=== PATIENT | male | born 1990 | race Caucasian/White ===

== ENCOUNTER 2023-03-18 01:33 | Inpatient (IN) | payer MEDICAID ==
[~2023-03-18] VITALS: Ht 182.9 cm; Wt 108.9 kg
[2023-03-18] MEDS ORDERED: KETOROLAC 30MG/ML VIAL IV STA (01:40)
[2023-03-18] MEDS ORDERED: ONDANSETRON HCL 4MG/2ML INJ IV STA (01:40)
[2023-03-18] MEDS ORDERED: SODIUM CHLORIDE 0.9% 1,000 ML IV ONE (01:45)
[2023-03-18 01:55] LABS: BASOPHILS % 0.2 % (0.0-2.0); EOSINOPHILS % 0.6 % (0.0-5.0); HEMATOCRIT. 45.2 % (42.0-52.0); HEMOGLOBIN. 15.5 g/dL (14.0-18.0); LYMPHOCYTES % 20.4 % (20.0-50.0); MEAN CORPUSCULAR HEMOGLOBIN 29.3 pg (28.0-32.0); MEAN CORPUSCULAR HGB CONC 34.4 g/dL (31.0-37.0); MEAN CORPUSCULAR VOLUME 85.4 fL (80.0-94.0); MEAN PLATELET VOLUME 7.2 fl (7.4-10.4); MONOCYTES % 5.9 % (2.0-8.0); NEUTROPHILS % 72.9 % (40.0-76.0); PLATELET 395 x1000/uL (130-400); RED CELL DISTRIBUTION WIDTH 12.8 % (11.6-14.6); WHITE BLOOD COUNT 13.5 x1000/uL (4.5-11.0)
[2023-03-18 02:07] LABS: PROTHROMBIN TIME 10.5 sec (9.6-11.0)
[2023-03-18 02:10] LABS: ALANINE AMINOTRANSFERASE 40 IU/L (10-49); ALBUMIN 4.4 g/dL (3.2-4.8); ASPARTATE AMINOTRANSFERASE 19 IU/L (<34); BILIRUBIN TOTAL 0.8 mg/dL (0.1-1.0); CALCIUM 9.6 mg/dL (8.7-10.4); CARBON DIOXIDE 20 mEq/L (21-32); CHLORIDE 104 mEq/L (98-107); CREATININE 0.8 mg/dL (0.6-1.3); GLUCOSE 308 mg/dL (70-105); POTASSIUM 3.5 mEq/L (3.5-5.1); PROTEIN TOTAL 7.8 g/dL (6.0-8.3); SODIUM 136 mEq/L (136-145); UREA NITROGEN BLOOD 11 mg/dL (9-23)
[2023-03-18 02:17] LABS: ETHANOL BLOOD < 10 mg/dL (<10)
[2023-03-18] MEDS ORDERED: ONDANSETRON HCL 4MG/2ML INJ IV NR (04:45)
[2023-03-18] MEDS ORDERED: KETOROLAC 30MG/ML VIAL IV NR (04:45)
[2023-03-18] MEDS ORDERED: SODIUM CHLORIDE 0.9% 1,000 ML IV NR (05:00)
[2023-03-18] MEDS ORDERED: CEFTRIAXONE 1GM PREMIX 50 ML IV NR (05:00)
[2023-03-18] MEDS ORDERED: DEXTROSE 50% WATER 50ML SYRINGE IV PRN (10:30)
[2023-03-18] MEDS ORDERED: LORAZEPAM 0.5MG TABLET PO PRN (10:30)
[2023-03-18] MEDS ORDERED: CLONIDINE 0.1MG TABLET PO PRN (10:30)
[2023-03-18] MEDS ORDERED: ACETAMINOPHEN 325MG TABLET PO PRN ×2 (10:30)
[2023-03-18] MEDS ORDERED: ONDANSETRON HCL 4MG/2ML INJ IV PRN (10:30)
[2023-03-18 10:49] VITALS: PULSE 94; RESP 18
[2023-03-18] MEDS: IPRATROPIUM/ALBUTEROL 0.5-3(2.5)MG/3ML NEB HHN SCH ×3 (10:49→20:58)
[2023-03-18 11:17] LABS: CLARITY URINE CLEAR (CLEAR); COLOR URINE YELLOW (YELLOW); GLUCOSE URINE 3+ (NEGATIVE); KETONES URINE 3+ (NEGATIVE); LEUKOCYTE ESTERASE URINE NEGATIVE (NEGATIVE); NITRITE URINE NEGATIVE (NEGATIVE); OCCULT BLOOD URINE NEGATIVE (NEGATIVE); PROTEIN URINE NEGATIVE (NEGATIVE); SPECIFIC GRAVITY URINE 1.046 (1.005-1.030)
[2023-03-18] MEDS ORDERED: METOCLOPRAMIDE HCL 5MG TABLET PO PRN (11:45)
[2023-03-18 11:46] LABS: BACTERIA URINE NONE SEEN; RBC URINE 0-2 /hpf (0-2); SQUAMOUS EPITHELIAL CELL URINE RARE /lpf (RARE/1+); WBC URINE 0-2 /hpf (0-2); YEAST URINE NONE SEEN
[2023-03-18 13:44] LABS: *AMPHETAMINES SCREEN URINE NEGATIVE (NEGATIVE); *BARBITURATES SCREEN URINE NEGATIVE (NEGATIVE); *BENZODIAZEPINES SCREEN URINE NEGATIVE (NEGATIVE); *COCAINE SCREEN URINE NEGATIVE (NEGATIVE); CANNABINOID URINE SCREEN NEGATIVE (NEGATIVE); ECSTASY MDMA SCREEN URINE NEGATIVE (NEGATIVE); METHADONE URINE SCREEN Neg (NEGATIVE); OPIATES URINE SCREEN NEGATIVE (NEGATIVE); PHENCYCLIDINE URINE SCREEN NEGATIVE (NEGATIVE)
[2023-03-18 15:48] VITALS: PULSE 70; RESP 18
[2023-03-18 16:00] VITALS: BP 127/84; PULSE 87; RESP 20; TEMP 98.6
[2023-03-18] MEDS: INSULIN LISPRO 100 UNITS/ML SUBCUT SCH ×3 (16:53→21:24)
[2023-03-18] MEDS: BLOOD SUGAR DIAGNOSTIC STRIP TEST SCH ×2 (16:53→21:18)
[2023-03-18 20:00] VITALS: BP 130/78; PULSE 99; RESP 16; TEMP 98.5
[2023-03-18 20:55] VITALS: PULSE 64; RESP 18
[2023-03-18 21:18] LABS: GAMMA GLUTAMYL TRANSPEPTIDASE 127 IU/L (<73)
[2023-03-18 21:21] LABS: BETA HYDROXYBUTYRATE < 0.1 mMol/L (0.0-0.3)
[2023-03-18 21:32] VITALS: BP 130/78; PULSE 99; RESP 18; TEMP 98.5
[2023-03-19] VITALS (10 sets, daily range): BP systolic 116–141; BP diastolic 69–80; PULSE 83–115; RESP 16–20; TEMP 97.6–98.3; O2SAT 97–99
[2023-03-19] MEDS: IPRATROPIUM/ALBUTEROL 0.5-3(2.5)MG/3ML NEB HHN SCH ×7 (00:50→21:22)
[2023-03-19 06:34] LABS: BASOPHILS % 0.4 % (0.0-2.0); EOSINOPHILS % 0.7 % (0.0-5.0); HEMOGLOBIN. 15.1 g/dL (14.0-18.0); LYMPHOCYTES % 12.9 % (20.0-50.0); MEAN CORPUSCULAR HEMOGLOBIN 29.4 pg (28.0-32.0); MEAN CORPUSCULAR VOLUME 83.9 fL (80.0-94.0); MEAN PLATELET VOLUME 7.7 fl (7.4-10.4); PLATELET 347 x1000/uL (130-400); RED BLOOD CELL COUNT 5.12 mill/uL (4.7-6.1); RED CELL DISTRIBUTION WIDTH 12.8 % (11.6-14.6); WHITE BLOOD COUNT 16.7 x1000/uL (4.5-11.0)
[2023-03-19 07:15] LABS: ALANINE AMINOTRANSFERASE 34 IU/L (10-49); ALBUMIN 4.4 g/dL (3.2-4.8); ASPARTATE AMINOTRANSFERASE 25 IU/L (<34); BILIRUBIN DIRECT 0.6 mg/dL (<=3.0); BILIRUBIN TOTAL 1.5 mg/dL (0.1-1.0); CALCIUM 9.4 mg/dL (8.7-10.4); CARBON DIOXIDE 24 mEq/L (21-32); CHLORIDE 101 mEq/L (98-107); CREATININE 0.7 mg/dL (0.6-1.3); GLUCOSE 224 mg/dL (70-105); POTASSIUM 3.6 mEq/L (3.5-5.1); SODIUM 133 mEq/L (136-145); UREA NITROGEN BLOOD 8 mg/dL (9-23)
[2023-03-19] MEDS: INSULIN LISPRO 100 UNITS/ML SUBCUT SCH ×4 (07:50→22:34)
[2023-03-19] MEDS: BLOOD SUGAR DIAGNOSTIC STRIP TEST SCH ×4 (07:57→21:47)
[2023-03-19] MEDS: CEFTRIAXONE 1GM PREMIX 50 ML IV SCH ×2 (11:00→13:15)
[2023-03-19] MEDS: SODIUM CHL 0.45% + KCL 20MEQ/L 1,000 ML IV SCH (22:57)
[2023-03-20 04:00] VITALS: BP 123/83; PULSE 95; RESP 18; TEMP 98
[2023-03-20] MEDS: IPRATROPIUM/ALBUTEROL 0.5-3(2.5)MG/3ML NEB HHN SCH ×2 (04:00→20:00)
[2023-03-20 06:13] LABS: BASOPHILS % 0.3 % (0.0-2.0); EOSINOPHILS % 1.5 % (0.0-5.0); HEMATOCRIT. 43.1 % (42.0-52.0); HEMOGLOBIN. 14.8 g/dL (14.0-18.0); LYMPHOCYTES % 13.1 % (20.0-50.0); MEAN CORPUSCULAR HEMOGLOBIN 29.4 pg (28.0-32.0); MEAN CORPUSCULAR HGB CONC 34.4 g/dL (31.0-37.0); MEAN CORPUSCULAR VOLUME 85.5 fL (80.0-94.0); MEAN PLATELET VOLUME 7.4 fl (7.4-10.4); MONOCYTES % 8.9 % (2.0-8.0); NEUTROPHILS % 76.2 % (40.0-76.0); PLATELET 334 x1000/uL (130-400); RED BLOOD CELL COUNT 5.04 mill/uL (4.7-6.1); RED CELL DISTRIBUTION WIDTH 12.6 % (11.6-14.6)
[2023-03-20 06:17] LABS: CALCIUM 9.2 mg/dL (8.7-10.4); CARBON DIOXIDE 22 mEq/L (21-32); CHLORIDE 101 mEq/L (98-107); CREATININE 0.7 mg/dL (0.6-1.3); GLUCOSE 187 mg/dL (70-105); POTASSIUM 3.7 mEq/L (3.5-5.1); SODIUM 133 mEq/L (136-145); UREA NITROGEN BLOOD 9 mg/dL (9-23)
[2023-03-20] MEDS: BLOOD SUGAR DIAGNOSTIC STRIP TEST SCH ×2 (07:20→12:20)
[2023-03-20] MEDS: INSULIN LISPRO 100 UNITS/ML SUBCUT SCH ×2 (07:50→12:50)
[2023-03-20 08:00] VITALS: BP 125/81; PULSE 100; RESP 18; RESP 20; TEMP 97.9
[2023-03-20] MEDS: SODIUM CHL 0.45% + KCL 20MEQ/L 1,000 ML IV SCH (08:30)
[2023-03-20 12:00] VITALS: BP_SYST 125; BP_SYST 129; BP_DIAS 64; BP_DIAS 65; PULSE 108; PULSE 75; RESP 18; TEMP 97.9; TEMP 98.6
[2023-03-20 14:00] VITALS: BP 125/69; PULSE 101; RESP 18; TEMP 98
[2023-03-20] MEDS ORDERED: SKIN ADHESIVE 0.7 GM EA TOP ONE (17:34)
[2023-03-20] MEDS ORDERED: LIDOCAINE HCL 1% 20ML VIAL (Pyxis) INJ ONE (17:34)
[2023-03-20] MEDS ORDERED: BUPIVACAINE HCL/PF 0.5% (5MG/ML) 10ML ONE (17:34)
[2023-03-20] MEDS ORDERED: POLYMYXIN B SULFATE 500000 UNITS/VIAL ONE (17:34)
[2023-03-20] MEDS ORDERED: PROPOFOL 200MG/20ML VIAL IV ONE (19:45)
[2023-03-20] MEDS ORDERED: ONDANSETRON HCL 4MG/2ML INJ ONE (19:46)
[2023-03-20] MEDS ORDERED: MIDAZOLAM HCL 2 MG/2 ML VIAL ONE (19:46)
[2023-03-20] MEDS ORDERED: DEXAMETHASONE 4MG/ML 1ML VIAL ONE (19:46)
[2023-03-20] MEDS ORDERED: CEFAZOLIN SODIUM 1000MG/VIAL ONE (19:47)
[2023-03-20] MEDS ORDERED: GLYCOPYRROLATE 0.2 MG/ML 2ML VIAL ONE (19:47)
[2023-03-20] MEDS ORDERED: SUCCINYLCHOLINE CHLORIDE 200MG/10ML IV ONE (19:47)
[2023-03-20] MEDS ORDERED: ROCURONIUM BROMIDE 10MG/ML VIAL 5ML IV ONE (19:47)
[2023-03-20] MEDS ORDERED: CEFOXITIN 2G in DEXTROSE 5% WATER 100ML IV NR (20:00)
[2023-03-20] MEDS ORDERED: MEPERIDINE HCL/PF 25MG/ML CPJ IV PRN (20:15)
[2023-03-20] MEDS ORDERED: HYDROMORPHONE HCL/PF 2MG/ML CPJ IV PRN (20:15)
[2023-03-20] MEDS ORDERED: FENTANYL CITRATE/PF 50MCG/ML 2ML VIAL IV PRN (20:15)
[2023-03-20] MEDS ORDERED: ONDANSETRON HCL 4MG/2ML INJ IV PRN (20:15)
[2023-03-20] MEDS ORDERED: HYDROMORPHONE HCL/PF 2MG/ML CPJ ONE ×2 (20:38→22:03)
[2023-03-21] VITALS (7 sets, daily range): BP systolic 107–118; BP diastolic 69–75; PULSE 70–94; RESP 18–20; TEMP 98.1–98.3; O2SAT 97–99
[2023-03-21] MEDS: IPRATROPIUM/ALBUTEROL 0.5-3(2.5)MG/3ML NEB HHN SCH ×5 (05:08→15:42)
[2023-03-21] MEDS: BLOOD SUGAR DIAGNOSTIC STRIP TEST SCH ×4 (07:20→21:30)
[2023-03-21] MEDS: HYDROCODONE/ACETAMINOPHEN 5/325MG TABLET PO PRN ×2 (09:19→13:51)
[2023-03-21] MEDS: INSULIN LISPRO 100 UNITS/ML SUBCUT SCH ×4 (09:21→21:00)
[2023-03-21 10:52] LABS: BASOPHILS % 0.2 % (0.0-2.0); EOSINOPHILS % 0.1 % (0.0-5.0); HEMATOCRIT. 40.4 % (42.0-52.0); LYMPHOCYTES % 9.2 % (20.0-50.0); MEAN CORPUSCULAR HEMOGLOBIN 29.3 pg (28.0-32.0); MEAN CORPUSCULAR HGB CONC 34.7 g/dL (31.0-37.0); MEAN CORPUSCULAR VOLUME 84.5 fL (80.0-94.0); MEAN PLATELET VOLUME 7.4 fl (7.4-10.4); MONOCYTES % 8.4 % (2.0-8.0); NEUTROPHILS % 82.1 % (40.0-76.0); PLATELET 359 x1000/uL (130-400); RED BLOOD CELL COUNT 4.79 mill/uL (4.7-6.1); RED CELL DISTRIBUTION WIDTH 12.5 % (11.6-14.6); WHITE BLOOD COUNT 12.3 x1000/uL (4.5-11.0)
[2023-03-21 11:22] LABS: CALCIUM 9.3 mg/dL (8.7-10.4); CARBON DIOXIDE 24 mEq/L (21-32); CHLORIDE 101 mEq/L (98-107); CREATININE 0.7 mg/dL (0.6-1.3); GLUCOSE 228 mg/dL (70-105); PHOSPHORUS 3.6 mg/dL (2.5-4.9); POTASSIUM 4.1 mEq/L (3.5-5.1); SODIUM 132 mEq/L (136-145); UREA NITROGEN BLOOD 16 mg/dL (9-23)
[2023-03-21] MEDS: SODIUM CHL 0.45% + KCL 20MEQ/L 1,000 ML IV SCH ×2 (13:50→14:30)
[2023-03-21] MEDS: CEFTRIAXONE 1GM PREMIX 50 ML IV SCH (15:00)
[2023-03-21] MEDS ORDERED: NALOXONE HCL 0.4MG/ML VIAL IV PRN (19:30)
[2023-03-22] VITALS (7 sets, daily range): BP systolic 110–129; BP diastolic 70–75; PULSE 75–104; RESP 18–20; TEMP 98.2–98.6; O2SAT 97–100
[2023-03-22] MEDS: SODIUM CHL 0.45% + KCL 20MEQ/L 1,000 ML IV SCH ×2 (00:23→10:30)
[2023-03-22] MEDS: BLOOD SUGAR DIAGNOSTIC STRIP TEST SCH ×2 (06:45→12:27)
[2023-03-22 07:33] LABS: BASOPHILS % 0.4 % (0.0-2.0); EOSINOPHILS % 1.9 % (0.0-5.0); HEMATOCRIT. 39.7 % (42.0-52.0); HEMOGLOBIN. 13.8 g/dL (14.0-18.0); LYMPHOCYTES % 22.6 % (20.0-50.0); MEAN CORPUSCULAR HEMOGLOBIN 29.5 pg (28.0-32.0); MEAN CORPUSCULAR HGB CONC 34.8 g/dL (31.0-37.0); MEAN CORPUSCULAR VOLUME 84.9 fL (80.0-94.0); MEAN PLATELET VOLUME 7.5 fl (7.4-10.4); MONOCYTES % 10.3 % (2.0-8.0); NEUTROPHILS % 64.8 % (40.0-76.0); PLATELET 383 x1000/uL (130-400); RED BLOOD CELL COUNT 4.68 mill/uL (4.7-6.1); RED CELL DISTRIBUTION WIDTH 12.7 % (11.6-14.6); WHITE BLOOD COUNT 9.3 x1000/uL (4.5-11.0)
[2023-03-22] MEDS: INSULIN LISPRO 100 UNITS/ML SUBCUT SCH ×2 (07:50→12:41)
[2023-03-22 08:04] LABS: ALANINE AMINOTRANSFERASE 155 IU/L (10-49); ALBUMIN 4.1 g/dL (3.2-4.8); ASPARTATE AMINOTRANSFERASE 70 IU/L (<34); BILIRUBIN TOTAL 0.7 mg/dL (0.1-1.0); CALCIUM 9.2 mg/dL (8.7-10.4); CARBON DIOXIDE 27 mEq/L (21-32); CHLORIDE 102 mEq/L (98-107); CREATININE 0.6 mg/dL (0.6-1.3); GLUCOSE 227 mg/dL (70-105); POTASSIUM 4.3 mEq/L (3.5-5.1); PROTEIN TOTAL 7.4 g/dL (6.0-8.3); SODIUM 134 mEq/L (136-145); UREA NITROGEN BLOOD 9 mg/dL (9-23)
[2023-03-22] MEDS: IPRATROPIUM/ALBUTEROL 0.5-3(2.5)MG/3ML NEB HHN SCH ×2 (08:04→12:44)
[2023-03-22] MEDS ORDERED: GLIP5TAB22 PO (09:40)
[2023-03-22] MEDS ORDERED: BENZ2TAB65 PO (09:40)
[2023-03-22] MEDS ORDERED: METF-416 PO (09:40)
[2023-03-22] MEDS ORDERED: RISP1TAB97 PO (09:40)
[2023-03-22] MEDS ORDERED: METF-414 PO (09:41)
[2023-03-22] MEDS ORDERED: AMOX1TAB16 MT (09:43)
[2023-03-22] MEDS: HYDROCODONE/ACETAMINOPHEN 5/325MG TABLET PO PRN (09:51)
[2023-03-22] MEDS: CEFTRIAXONE 1GM PREMIX 50 ML IV SCH (11:00)
== END 2023-03-22 16:55 | disposition home or self-care (01) | DRG 710 ==
LOC: ER 01:51 → 5WST 06:46 → 6WST 16:14
PROVIDERS: ADMIT Internal Medicine; ATTEND Internal Medicine
PROC: 0FT44ZZ Resection of Gallbladder, Percutaneous Endoscopic Approach (ICD-10-PCS; principal; 2023-03-20)
DX: A41.9 Sepsis, unspecified organism (principal); K80.13 Calculus of gallbladder with acute and chronic cholecystitis with obstruction; K76.0 Fatty (change of) liver, not elsewhere classified; R16.2 Hepatomegaly with splenomegaly, not elsewhere classified; E11.65 Type 2 diabetes mellitus with hyperglycemia; F20.9 Schizophrenia, unspecified; Z79.899 Other long term (current) drug therapy; Z79.84 Long term (current) use of oral hypoglycemic drugs; Z59.01 Sheltered homelessness; Z79.4 Long term (current) use of insulin
CPT/HCPCS: 36415; 74176; 76705; 78227; 80048; 80053; 80076; 80305; 80320; 81003; 82010; 82962; 82977; 83036; 83605; 83735; 84100; 85025; 88304; 94640; 99285; A9537; J0330; J0690; J0694; J0696; J1100; J1170; J1815; J1885; J2250; J2405; J2704; J3480; J3490; J7030; J7060; G0480